=== PATIENT | male | born 1995 | race Caucasian/White ===

== ENCOUNTER 2017-09-14 20:20 | Emergency (ER) | payer BC ==
[2017-09-14 20:27] VITALS: BP 128/78
[2017-09-14] MEDS ORDERED: Amoxicillin PO (*) 500 MG CAP PO ONE (20:50)
--- NOTE | 2017-09-14 20:51 | ED ---
Throat Pain/Nasal Congestion - HPI Summary HPI Summary: 22M presents with left ear pain today. He has had a cold for past 4 days. He states that he developed the pain today and it has gotten even more intense. has history of ear infection and states that feels the same. no fever. no sore throat. admits to cough and sinus congestion. has been taking cough medication which was helping but no the ear. - History of Current Complaint Chief Complaint: UCEar Time Seen by Provider: 09/14/17 20:47 - Allergies/Home Medications Allergies/Adverse Reactions: Allergies Allergy/AdvReac Type Severity Reaction Status Date / Time No Known Allergies Allergy Verified 09/14/17 20:26 Home Medications: Home Medications Fluticasone/Vilanterol MDI(NF) [Breo Ellipta MDI (NF)] 1 puff INH DAILY [History Confirmed 09/14/17] Pantoprazole TAB (NF) [Protonix TAB (NF)] 20 mg PO DAILY 09/14/17 [History Confirmed 09/14/17] PMH/Surg Hx/FS Hx/Imm Hx Endocrine/Hematology History: Denies: Hx Anticoagulant Therapy Respiratory History: Reports: Hx Asthma - cold induced Infectious Disease History: No Infectious Disease History: Denies: Traveled Outside the [place] in Last 30 Days - Family History Known Family History: Positive: Respiratory Disease - Social History Alcohol Use: Weekly Substance Use Type: Reports: None Smoking Status (MU): Never Smoked Tobacco Review of Systems Negative: Fever Positive: Ear Ache, Nasal Discharge Negative: Chest Pain Positive: Cough. Negative: Shortness Of Breath All Other Systems Reviewed And Are Negative: Yes Physical Exam Triage Information Reviewed: Yes Vital Signs On Initial Exam: Initial Vitals Temp Pulse Resp BP Pulse Ox 97.4 F 88 14 128/78 99 09/14/17 20:23 09/14/17 20:23 09/14/17 20:23 09/14/17 20:23 09/14/17 20:23 Vital Signs Reviewed: Yes Appearance: Positive: Well-Appearing Skin: Positive: Warm, Dry Head/Face: Positive: Normal Head/Face Inspection Eyes: Positive: Normal, EOMI, CHAYA, Conjunctiva Clear ENT: Positive: Pharynx normal, TM bulging - left, TM red Neck: Positive: Supple, Nontender, No Lymphadenopathy Respiratory/Lung Sounds: Positive: Clear to Auscultation, Breath Sounds Present Cardiovascular: Positive: Normal, RRR Abdomen Description: Positive: Nontender, Soft Bowel Sounds: Positive: Present Diagnostics - Vital Signs Vital Signs Temp Pulse Resp BP Pulse Ox 09/14/17 20:23 97.4 F 88 14 128/78 99 - Laboratory Lab Statement: Any lab studies that have been ordered have been reviewed, and results considered in the medical decision making process. EENT Course/Dx - Course Course Of Treatment: 22M presents with left ear pain today. He has had a cold for past 4 days. He states that he developed the pain today and it has gotten even more intense. has history of ear infection and states that feels the same. no fever. no sore throat. admits to cough and sinus congestion. has been taking cough medication which was helping but no the ear. on exam left TM red and bulging. will treat with amoxicillin. patient understands and agrees with plan. - Differential Diagnoses Differential Diagnoses: Otitis Externa, Otitis Media, URI/Bronchitis - Diagnoses Provider Diagnoses: Otitis media Discharge - Discharge Plan Condition: Good Disposition: HOME Prescriptions: Amoxicillin PO (*) [Amoxicillin 500 MG CAP*] 500 mg PO BID #19 cap Patient Education Materials: Otitis Media (ED) Additional Instructions: Take antibiotic twice a day for 10 days Take Tylenol or ibuprofen for pain every 6 hours Follow up with primary within 5 days if no improvement Return to ED if develop any new or worsening symptoms
== END 2017-09-14 21:03 | disposition home or self-care (01) ==
LOC: UCCORT 20:20
DX: H66.92 Otitis media, unspecified, left ear (principal)
CPT/HCPCS: 99202; A9270-GY; G0463

== ENCOUNTER 2017-12-30 11:51 | Emergency (ER) | payer BC ==
[2017-12-30 14:27] VITALS: BP 137/82
--- NOTE | 2017-12-30 14:35 | UC ---
Lower Extremity/Ankle HPI - HPI Summary HPI Summary: Pt c/o right second toe pain and swelling, medial aspect. Has history of ingrown toenail in this toe. - History of Current Complaint Stated Complaint: TOE COMPLAINT Time Seen by Provider: 12/30/17 14:19 Hx Obtained From: Patient Onset/Duration: Gradual Onset, Lasting Days, Still Present Severity Initially: Mild Severity Currently: Mild Pain Intensity: 0 Aggravating Factor(s): Standing, Ambulation Alleviating Factor(s): Rest, Elevation Able to Bear Weight: Yes - Risk Factors Gout Risk Factors: Male DVT Risk Factors: Negative Septic Arthritis Risk Factor: Negative - Allergies/Home Medications Allergies/Adverse Reactions: Allergies Allergy/AdvReac Type Severity Reaction Status Date / Time No Known Allergies Allergy Verified 12/30/17 14:22 Home Medications: Home Medications Dicyclomine CAP* [Bentyl CAP*] 1 tab TID PRN 12/30/17 [History Confirmed ] PMH/Surg Hx/FS Hx/Imm Hx Previously Healthy: Yes Other History Of: Negative For: Anticoagulant Therapy - Surgical History Surgical History: None - Family History Known Family History: Positive: Respiratory Disease - Social History Occupation: Student Lives: Dormitory/Roommates Alcohol Use: None Substance Use Type: None Smoking Status (MU): Never Smoked Tobacco Have You Smoked in the Last Year: No - Immunization History Most Recent Influenza Vaccination: no Review of Systems Constitutional: Negative Skin: Other - erythema, tenderness, pustular area Eyes: Negative ENT: Negative Respiratory: Negative Cardiovascular: Negative Gastrointestinal: Negative Genitourinary: Negative Motor: Negative Neurovascular: Negative Musculoskeletal: Myalgia - right distal second toe medial aspect along nail bed Neurological: Negative Psychological: Negative Is Patient Immunocompromised?: No All Other Systems Reviewed And Are Negative: Yes Physical Exam Triage Information Reviewed: Yes Appearance: Well-Appearing Vital Signs: Initial Vital Signs Temp 98.8 F 12/30/17 14:23 Pulse 84 12/30/17 14:23 Resp 16 12/30/17 14:23 BP 137/82 12/30/17 14:23 Pulse Ox 100 12/30/17 14:23 Vital Signs Reviewed: Yes Eye Exam: Normal ENT Exam: Normal Dental Exam: Normal Neck exam: Normal Respiratory Exam: Other Respiratory: Positive: No respiratory distress Cardiovascular Exam: Other Musculoskeletal Exam: Other Musculoskeletal: Positive: Edema @ - right distal second toe medial aspect of nail bed Neurological Exam: Normal Psychological Exam: Normal Skin Exam: Other - right second toe, medial aspect of nail bed, mild erythema Lower Extremity Course/Dx - Differential Dx/Diagnosis Differential Diagnosis/HQI/PQRI: Cellulitis, Infection Provider Diagnoses: right second toe infection, ingrown nail Discharge - Discharge Plan Condition: Stable Disposition: HOME Prescriptions: Cephalexin CAP* [Keflex 500 CAP*] 500 mg PO Q12H #14 cap Patient Education Materials: Ingrown Nail (ED) Referrals: Non Staff,Doctor [Primary Care Provider] - Additional Instructions: Please follow up with your PCP or return to clinic as needed. Please follow up with your nurse clinical as needed. Please soak the affected toe in warm water and EPSOM SALTS twice daily for 20 minutes each time.
== END 2017-12-30 14:41 | disposition home or self-care (01) ==
LOC: UCCORT 11:51
DX: L08.9 Local infection of the skin and subcutaneous tissue, unspecified (principal); L60.0 Ingrowing nail
CPT/HCPCS: 99212; G0463

== ENCOUNTER 2018-03-22 20:30 | Emergency (ER) | payer BC ==
[2018-03-22 20:41] VITALS: BP 130/81
--- NOTE | 2018-03-22 21:00 | UC ---
Abdominal Pain Male HPI - HPI Summary HPI Summary: Pt presents with c/o "stomach ache" that began this morning. Pt has history of IBS, cholecysitis, hepatomegaly, and jejunum "infection" in June 2017. Pt reports that he "went out drinking last night" and drank several beers. Pt states that he is gluten intolerance and drank beer last night. - History of Current Complaint Hx Obtained From: Patient Onset/Duration: Sudden Onset, Lasting Hours, Still Present Timing: Constant Severity Initially: Mild Severity Currently: Mild Pain Intensity: 5 Location: Discrete At: LUQ Radiates: No Character: Colicy, Dull Aggravating Factor(s): Food Alleviating Factor(s): Nothing Associated Signs And Symptoms: Positive: Negative <Dorothy Jameson NP - Last Filed: 03/22/18 21:06> <Mallory Millard - Last Filed: 03/22/18 21:39> - History of Current Complaint Chief Complaint: UCAbdominalPain Stated Complaint: STOMACH ACHE Time Seen by Provider: 03/22/18 20:40 - Allergies/Home Medications Allergies/Adverse Reactions: Allergies Allergy/AdvReac Type Severity Reaction Status Date / Time No Known Allergies Allergy Verified 12/30/17 14:22 Home Medications: Home Medications Albuterol HFA INHALER* [Ventolin HFA Inhaler*] 1 puff INH Q4HR 03/22/18 [ History Confirmed 03/22/18] Hyoscyamine TAB* [Anaspaz 0.125 MG TAB*] 0.125 mg PO DAILY 03/22/18 [History Confirmed 03/22/18] guaiFENesin [Hm Mucus ER] 1,200 mg PO Q12HR 03/22/18 [History Confirmed 03/22/18 ] PMH/Surg Hx/FS Hx/Imm Hx Previously Healthy: Yes Other History Of: Negative For: Anticoagulant Therapy - Surgical History Surgical History: None - Family History Known Family History: Positive: Respiratory Disease - Social History Occupation: Student Lives: With Family Alcohol Use: Weekly Substance Use Type: None Smoking Status (MU): Never Smoked Tobacco Have You Smoked in the Last Year: No - Immunization History Most Recent Influenza Vaccination: no <Dorothy Jameson NP - Last Filed: 03/22/18 21:06> Review of Systems Constitutional: Negative Skin: Negative Eyes: Negative ENT: Negative Respiratory: Negative Cardiovascular: Negative Gastrointestinal: Abdominal Pain, Diarrhea - resolved Genitourinary: Negative Motor: Negative Neurovascular: Negative Musculoskeletal: Negative Neurological: Negative Psychological: Negative Is Patient Immunocompromised?: No All Other Systems Reviewed And Are Negative: Yes <Dorothy Jameson NP - Last Filed: 03/22/18 21:06> Physical Exam Triage Information Reviewed: Yes Appearance: Well-Appearing Vital Signs: Initial Vital Signs Temp 98.3 F 03/22/18 20:37 Pulse 81 03/22/18 20:37 Resp 16 03/22/18 20:37 BP 130/81 03/22/18 20:37 Pulse Ox 100 03/22/18 20:37 Vital Signs Reviewed: Yes Eye Exam: Normal ENT: Positive: Hearing grossly normal Dental Exam: Normal Neck exam: Normal Respiratory Exam: Normal Cardiovascular Exam: Normal Abdominal Exam: Other Abdomen Description: Positive: No Organomegaly, Other: - LUQ tenderness Bowel Sounds: Positive: Present Musculoskeletal Exam: Normal Neurological Exam: Normal Psychological Exam: Normal Skin Exam: Normal <Dorothy Jameson NP - Last Filed: 03/22/18 21:06> Vital Signs: Initial Vital Signs Temp 98.3 F 03/22/18 20:37 Pulse 81 03/22/18 20:37 Resp 16 03/22/18 20:37 BP 130/81 03/22/18 20:37 Pulse Ox 100 03/22/18 20:37 <Mallory Millard - Last Filed: 03/22/18 21:39> Abd Pain Male Course/Dx - Differential Dx/Clinical Impression Differential Diagnosis/HQI/PQRI: Other - gastritis Provider Diagnoses: gastritis. abdominal pain <Dorothy Jameson NP Last Filed: 03/22/18 21:06> Discharge - Sign-Out/Discharge Documenting (check all that apply): Discharge/Admit/Transfer - Billing Disposition and Condition Condition: STABLE Disposition: HOME <Dorothy Jameson NP - Last Filed: 03/22/18 21:06> - Billing Disposition and Condition Condition: STABLE Disposition: HOME <Mallory Millard - Last Filed: 03/22/18 21:39> - Discharge Plan Condition: Stable Disposition: HOME Patient Education Materials: Abdominal Pain (ED) Referrals: [facility] [place] [facility] [Outside] Non Staff,Doctor [Primary Care Provider] - Additional Instructions: Please follow up with your PCP or return to clinic as needed. Attestation Statement User Type: Provider - I was available for consult. This patient was seen by the JOSE EDUARDO. The patient was not presented to, seen by, or examined by me. -Vish <Mallory Millard - Last Filed: 03/22/18 21:39>
== END 2018-03-22 21:06 | disposition home or self-care (01) ==
LOC: UCCORT 20:30
DX: K29.70 Gastritis, unspecified, without bleeding (principal); Z87.19 Personal history of other diseases of the digestive system
CPT/HCPCS: 99211; G0463

== ENCOUNTER 2018-10-21 08:44 | Emergency (ER) | payer BC ==
[2018-10-21 08:58] VITALS: BP 126/79
--- NOTE | 2018-10-21 09:39 | ED ---
Throat Pain/Nasal Congestion - HPI Summary HPI Summary: 23 yr old male with the complaint of runny nose, cough, ear pressure left ear for a week. 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 - History of Current Complaint Chief Complaint: UCEar Time Seen by Provider: 10/21/18 09:29 - Allergies/Home Medications Allergies/Adverse Reactions: Allergies Allergy/AdvReac Type Severity Reaction Status Date / Time No Known Allergies Allergy Verified 10/21/18 08:51 Home Medications: Home Medications Acetaminophen [Tylenol Extra Strength] 500 mg PO PRN 10/21/18 [History] PMH/Surg Hx/FS Hx/Imm Hx Endocrine/Hematology History: Denies: Hx Anticoagulant Therapy Respiratory History: Reports: Hx Asthma - cold induced Infectious Disease History: No Infectious Disease History: Denies: Traveled Outside the [place] in Last 30 Days - Family History Known Family History: Positive: Respiratory Disease - Social History Alcohol Use: Weekly Substance Use Type: Reports: None Smoking Status (MU): Never Smoked Tobacco Have You Smoked in the Last Year: No Review of Systems Constitutional: Negative Positive: Ear Ache, Nasal Discharge Positive: Cough All Other Systems Reviewed And Are Negative: Yes Physical Exam Triage Information Reviewed: Yes Vital Signs On Initial Exam: Initial Vitals Temp Pulse Resp BP Pulse Ox 97.8 F 84 16 126/79 99 10/21/18 08:53 10/21/18 08:53 10/21/18 08:53 10/21/18 08:53 10/21/18 08:53 Vital Signs Reviewed: Yes Appearance: Positive: Well-Appearing, No Pain Distress Skin: Positive: Warm, Skin Color Reflects Adequate Perfusion Head/Face: Positive: Normal Head/Face Inspection Eyes: Positive: EOMI ENT: Positive: Pharynx normal, Pharyngeal erythema, Nasal congestion, Nasal drainage, TM red - left with retraction of ear drum, right TM red Neck: Positive: Nontender Respiratory/Lung Sounds: Positive: Clear to Auscultation, Breath Sounds Present Cardiovascular: Positive: RRR. Negative: Murmur Abdomen Description: Positive: Nontender Musculoskeletal: Positive: Strength/ROM Intact Neurological: Positive: Sensory/Motor Intact, Alert, Oriented to Person Place, Time, CN Intact II-III Psychiatric: Positive: Normal - Force Coma Scale Best Eye Response: 4 - Spontaneous Best Motor Response: 6 - Obeys Commands Best Verbal Response: 5 - Oriented Coma Scale Total: 15 Diagnostics - Vital Signs Vital Signs Temp Pulse Resp BP Pulse Ox 10/21/18 08:53 97.8 F 84 16 126/79 99 - Laboratory Lab Statement: Any lab studies that have been ordered have been reviewed, and results considered in the medical decision making process. EENT Course/Dx - Course Course Of Treatment: 23 yr old with URI symptoms and OM. Rx with Cefdinir - Diagnoses Provider Diagnoses: Otitis media Discharge - Sign-Out/Discharge Documenting (check all that apply): Patient Departure All imaging exams completed and their final reports reviewed: No Studies - Discharge Plan Condition: Good Disposition: HOME Prescriptions: Cefdinir [Cefdinir 300 MG CAP] 300 mg PO BID #20 cap Patient Education Materials: Ear Infection (ED) Referrals: No Primary Care Phys,NOPCP [Primary Care Provider] - [facility] [place] [facility] [Outside] - 2 Days - Billing Disposition and Condition Condition: GOOD Disposition: Home
== END 2018-10-21 09:46 | disposition home or self-care (01) ==
LOC: UCCORT 08:44
DX: H66.92 Otitis media, unspecified, left ear (principal)
CPT/HCPCS: 99212; G0463

== ENCOUNTER 2019-01-20 07:24 | Emergency (ER) | payer BC ==
--- OUTSIDE RECORDS SUMMARY | 2019-01-20 07:30 | XMS REPORT | Continuity of Care Document ---
:1995 External Reference #:[id number] Author Name Aysha Samano NP Address [address] [place] [id number] Care Team Providers Name Role Phone Yes Primary Care Physician Unavailable Payers Date Identification Numbers Payment Provider Subscriber Policy Number: [id number] Vannesa Davidson PayID: [id number] [address] [address] [place] [address] Advance Directives Description No Information Available Problems Description No Information Family History Date Family Member(s) Observation Comments Father Alive Father No Current Problems Mother Alive Mother arrythrmia Social History Type Date Description Comments Sex Male Education Currently working on Bachelor's Degree Marital Status Legal Status: Never ETOH Use Drinks 6 Alcoholic Beverages Per Week Recreational Drug Use smoke marijuana, never used needles or snorted any drugs Tobacco Use Start: Unknown Patient has never smoked Recreational Drug Use Teaching Provided Regarding Naloxone/Narcan Training Available AT [facility] Tattoo/Piercing none Allergies, Adverse Reactions, Alerts Description No Known Drug Allergies Medications Medication Date Status Form Strength Qnty SIG Indications Ordering Provider Pantoprazole Sodium Active Unknown Immunizations Description No Information Available Vital Signs Description No Information Available Results Description No Information Available Procedures Description No Information Available Encounters Type Date Location Provider Dx Diagnosis Office Visit 01/05/2019 [facility] Aysha Samano NP Z11.3 Encntr screen for 1:30p infections w sexl mode of transmiss Z30.09 Encounter for oth general coun and advice on contraception Z11.4 Encounter for screening for human immunodeficiency virus Z72.53 High risk bisexual behavior Plan of Treatment 01/05/2019 - Aysha Samano NPZ11.3 Encounter for screening for infections with a predominantly sexual mode of transmissionNew Labs:Chlamydia/N Gonorroeae Rna Tma Urogenit, Ordered: 01/05/19RPR W/RFX Titer & Confirm, Ordered: 01/05Chlamydia/N Gonorroeae Rna Tma Urogenit, Ordered: 01/05/19Comments:Reviewed STD risks and prevention with patient. Patient states understanding. Condoms given to patient.Z30.09 Encounter for other general counseling and advice on contraceptionComments:Counseled patient on importance of consistent and correct condom use to avoid unintended . Encouraged patient to discuss control with sexual partners. Patient stated understanding.Z11.4 Encounter for screening for human immunodeficiency virus [HIV]New Labs:HIV Rapid..., Ordered: 01/05/19Comments:Counseled patient on PREP. He declines referral at this time. PREP pamphlet given to patient.Z72.53 High risk bisexual behavior
[2019-01-20 07:36] VITALS: BP 126/64
--- NOTE | 2019-01-20 07:59 | UC ---
Throat Pain/Nasal Amos HPI - HPI Summary HPI Summary: Per coronary care unit nurse "c/o sore throat since Th. Fever started yesterday. He also states body aches" -states he has been tested for mono in past w/ similar sx and was told he has had mono in past + body aches and fever. -normally has big tonsils. but they are slightly bigger today w/ purulent dc. -antipyretics have worn off. - History of Current Complaint Chief Complaint: UCRespiratory Stated Complaint: SORE THROAT Time Seen by Provider: 01/20/19 07:34 Pain Intensity: 5 - Allergies/Home Medications Allergies/Adverse Reactions: Allergies Allergy/AdvReac Type Severity Reaction Status Date / Time No Known Allergies Allergy Verified 01/20/19 07:36 PMH/Surg Hx/FS Hx/Imm Hx Previously Healthy: Yes Other History Of: Negative For: Anticoagulant Therapy - Surgical History Surgical History: None - Family History Known Family History: Positive: Respiratory Disease - Social History Alcohol Use: Weekly Substance Use Type: None Smoking Status (MU): Never Smoked Tobacco Have You Smoked in the Last Year: No - Immunization History Most Recent Influenza Vaccination: no Review of Systems All Other Systems Reviewed And Are Negative: Yes Constitutional: Positive: Fever, Fatigue Skin: Positive: Negative. Negative: Rash Eyes: Positive: Negative ENT: Positive: Sore Throat. Negative: Sinus Congestion Respiratory: Positive: Negative Cardiovascular: Positive: Negative. Negative: Palpitations, Chest Pain Gastrointestinal: Positive: Negative Genitourinary: Positive: Negative, Dysuria Motor: Positive: Negative Neurovascular: Positive: Negative Musculoskeletal: Positive: Negative Neurological: Positive: Negative Psychological: Positive: Negative Is Patient Immunocompromised?: No Physical Exam Triage Information Reviewed: Yes Appearance: Well-Appearing, No Pain Distress, Well-Nourished Vital Signs: Initial Vital Signs Temp 102.7 F 01/20/19 07:32 Pulse 118 01/20/19 07:32 Resp 18 01/20/19 07:32 BP 126/64 01/20/19 07:32 Pulse Ox 99 01/20/19 07:32 Vital Signs Reviewed: Yes Eye Exam: Normal ENT: Positive: Hearing grossly normal, Pharyngeal erythema, TMs normal, Tonsillar swelling, Tonsillar exudate - b/l. no abscess seen, Uvula midline - bi -fibed. Negative: Hoarse voice, Sinus tenderness Neck exam: Normal Neck: Positive: Supple, Nontender, No Lymphadenopathy. Negative: Nuchal Rigidity Respiratory Exam: Normal Respiratory: Positive: Lungs clear, Normal breath sounds, No respiratory distress, No accessory muscle use. Negative: Crackles, Rhonchi, Stridor, Wheezing Cardiovascular Exam: Normal Cardiovascular: Positive: RRR, No Murmur, Pulses Normal, Brisk Capillary Refill Abdominal Exam: Normal Abdomen Description: Positive: Nontender, Soft Musculoskeletal Exam: Normal Neurological Exam: Normal Psychological Exam: Normal Skin Exam: Normal Throat Pain/Nasal Course/Dx - Course Course Of Treatment: rapid strep negative. -still clincial concern for sterp. check traditional TC. treat w/ cefdinir. -denies drooling, change on voice and difficulty swallowing. recommend he FU if tehse develop. o/w fu at [facility] on Tuesday. Pt understoood me well and is agreeable w/ plan. - Differential Dx/Diagnosis Differential Diagnosis/HQI/PQRI: Influenza, Peritonsillar Abscess, Pharyngitis, Tonsillitis, URI Provider Diagnosis: Pharyngitis Discharge - Sign-Out/Discharge Documenting (check all that apply): Patient Departure All imaging exams completed and their final reports reviewed: No Studies - Discharge Plan Condition: Stable Disposition: HOME Prescriptions: Cefdinir [Cefdinir 300 MG CAP] 300 mg PO BID #20 capsule Patient Education Materials: Strep Throat (ED) Referrals: No Primary Care Phys,NOPCP [Primary Care Provider] - Additional Instructions: The rapid throat culture done is negative. However, we ordered a traditional throat culture that will be back in 1-2 days. I am treating you with an antibiotic as if you have strep throat. Please follow up at [facility] on Tuesday for follow up. You should follow up here or in the ER if symptoms worsen , change or have difficulty swallowing or breathing. Make sure to take a probiotic daily while on antibiotics to help prevent a potential complication of antibiotic use called c diff. Some well known brands that can be found OTC are [employer], [employer] and [employer]. Make sure to complete the entire prescription unless advised otherwise by your health care provider. - Billing Disposition and Condition Condition: STABLE Disposition: Home
[2019-01-20 08:21] LABS: Influenza A Molecular NEGATIVE (Negative); Influenza B Molecular NEGATIVE (Negative)
[2019-01-20] MEDS ORDERED: Acetaminophen TAB* 325 MG PO ONE (08:29)
== END 2019-01-20 08:42 | disposition home or self-care (01) ==
LOC: UCCORT 07:24
DX: J02.9 Acute pharyngitis, unspecified (principal)
CPT/HCPCS: 87070; 87077; 87651; 99212; A9270-GY; G0463